=== PATIENT | female | born 1960 | race Caucasian/White ===

== ENCOUNTER 2024-08-30 14:18 | Emergency (ER) | payer OTHER, SELFPAY ==
[2024-08-30 14:21] VITALS: BP 131/55
--- NOTE | 2024-08-30 15:01 | ED.GENMED ---
History of Present Illness
<Abdifatah Velasquez Jr., PA-C - Last Filed: 08/31/24 19:27>
General
Chief Complaint: Abdominal Symptoms
Source: patient
Exam Limitations: none
Time Seen by Provider: 08/30/24 14:36
Nursing documentation reviewed up to this point in time: agreed with
History of Present Illness
History of Present Illness:
The patient is a 64-year-old female presenting with a two-week history of diarrhea. Initially, the diarrhea was watery, and it has since become loose. There is no reported fever, but the patient reports feeling lightheaded. She denies any recent
international travel or obvious exposures. There is no significant change in diet or medications that could account for the symptoms. The patient has no known history of irritable bowel syndrome or gastrointestinal diseases and has not previously
consulted a gastrointestinal specialist. Her last colonoscopy was performed on August 24 of the previous year. The patient has not provided any stool samples or consulted a medical professional regarding this issue until now. There is associated
abdominal pain, which worsens upon palpation.
Past History
<Abdifatah Velasquez Jr., PA-C - Last Filed: 08/31/24 19:27>
Past History
ED Past Medical History: GERD
ED Past Surgical History:
Social History
Tobacco: Non-smoker
Alcohol: Occasional
Personal:
Living: with family
Review of Systems
<Abdifatah Velasquez Jr., PA-C - Last Filed: 08/31/24 19:27>
Review of Systems
Allergies reviewed?: Yes
All Other Systems: ROS reviewed and negative except as documented in HPI and ROS
Phy Exam
<Abdifatah Velasquez Jr., PA-C - Last Filed: 08/31/24 19:27>
Physical Exam
Physical Exam:
GENERAL: Alert , in no apparent distress
EYE: pupils equal and reactive
NECK: Supple, no significant adenopathy.
ENT: o/p clr, mmm.
CARDIAC: Regular rate and rhythm .
LUNGS: Clear breath sounds bilaterally, no acute respiratory distress, no wheezes/rales/rhonchi
ABDOMEN: Tender palpation to the lower abdomen.
NEUROLOGICAL: Alert and oriented, no focal neuro deficits
SKIN: Warm and dry, skin intact.
MUSCULOSKELETAL: No edema, well perfused.
PSYCH: Normal and appropriate interaction.
Course
<Abdifatah Velasquez Jr., CARLOS - Last Filed: 08/31/24 19:27>
Orders/Labs/Results
Orders:
Orders
08/30/24 14:59
CT Abd/Pel (IV only)-DH only Urgent
Comment:
Reason For Exam: abd pain lower
0.9% Sodium Chloride 1000 ml [Nss] 1,000 ml IV BOLUS
Ondansetron Injectable [Zofran] 4 mg IV NOW STA
08/30/24 15:34
Complete Blood Count/With Diff Urgent
Comprehensive Metabolic Panel Urgent
08/30/24 15:48
Urinalysis Reflex To Culture Urgent
Date Specimen was Collected: 08/30/24
Time Specimen was Collected: 15:47
Urine Microscopic Reflex Cult Urgent
Urine Culture Urgent
[place] Source: U
Specimen Description:
Date Specimen was Collected: 08/30/24
Time Specimen was Collected: 15:47
08/30/24 18:28
Loperamide [Imodium] 2 mg PO NOW STA
Abnormal Lab Results
08/30/24 08/30/24
15:34 15:48
WBC 4.5 L 10^3/uL
(4.8-10.8)
RBC 3.92 L 10^6/uL
(4.20-5.40)
Hgb 11.8 L g/dL
(12.0-16.0)
Hct 34.8 L %
(37.0-47.0)
Chloride 113 H mmol/L
(98-107)
Leukocyte Esterase Rfl 1+ A
(Negative)
Urine WBC (Reflex) 11-15 A /HPF
(0-5)
Urine Bacteria (Reflex) Many A
(Negative)
Urine Albumin (Reflex) 2+ A
(Neg - Trace)
08/30/24 15:34
08/30/24 15:34
Vital Signs
Initial and Last Documented VS:
Initial Vital Signs
Temp Pulse Resp BP Pulse Ox
97.6 F 77 15 131/55 98
08/30/24 14:21 08/30/24 14:21 08/30/24 14:21 08/30/24 14:21 08/30/24 14:21
Last Documented Vital Signs
Temp Pulse Resp BP Pulse Ox
97.6 F 77 15 146/70 96
08/30/24 14:21 08/30/24 14:21 08/30/24 14:21 08/30/24 18:00 08/30/24 18:30
<Donna Cheek [employer] - Last Filed: 08/31/24 00:19>
Orders/Labs/Results
Orders:
Orders
08/30/24 14:59
CT Abd/Pel (IV only)-[facility] only Urgent
Comment:
Reason For Exam: abd pain lower
0.9% Sodium Chloride 1000 ml [Nss] 1,000 ml IV BOLUS
Ondansetron Injectable [Zofran] 4 mg IV NOW STA
08/30/24 15:34
Complete Blood Count/With Diff Urgent
Comprehensive Metabolic Panel Urgent
08/30/24 15:48
Urinalysis Reflex To Culture Urgent
Date Specimen was Collected: 08/30/24
Time Specimen was Collected: 15:47
Urine Microscopic Reflex Cult Urgent
Urine Culture Urgent
[place] Source: U
Specimen Description:
Date Specimen was Collected: 08/30/24
Time Specimen was Collected: 15:47
08/30/24 18:28
Loperamide [Imodium] 2 mg PO NOW STA
Abnormal Lab Results
08/30/24 08/30/24
15:34 15:48
WBC 4.5 L 10^3/uL
(4.8-10.8)
RBC 3.92 L 10^6/uL
(4.20-5.40)
Hgb 11.8 L g/dL
(12.0-16.0)
Hct 34.8 L %
(37.0-47.0)
Chloride 113 H mmol/L
(98-107)
Leukocyte Esterase Rfl 1+ A
(Negative)
Urine WBC (Reflex) 11-15 A /HPF
(0-5)
Urine Bacteria (Reflex) Many A
(Negative)
Urine Albumin (Reflex) 2+ A
(Neg - Trace)
08/30/24 15:34
08/30/24 15:34
Vital Signs
Initial and Last Documented VS:
Initial Vital Signs
Temp Pulse Resp BP Pulse Ox
97.6 F 77 15 131/55 98
08/30/24 14:21 08/30/24 14:21 08/30/24 14:21 08/30/24 14:21 08/30/24 14:21
Last Documented Vital Signs
Temp Pulse Resp BP Pulse Ox
97.6 F 77 15 146/70 96
08/30/24 14:21 08/30/24 14:21 08/30/24 14:21 08/30/24 18:00 08/30/24 18:30
<Abdifatah Velasquez Jr. PAThanh - Last Filed: 08/31/24 19:27>
MDM/Problems Addressed
MDM/Problems Addressed:
Plans include obtaining laboratory tests to assess for dehydration and other abnormalities, administering intravenous fluids to address potential dehydration, and providing an antiemetic medication, likely ondansetron, through the IV to help with
symptoms. A stool sample will be collected for further analysis. Considering the abdominal pain, a CT scan may be performed to evaluate for colitis, diverticulitis, or other abdominal pathology.
<Abdifatah Velasquez Jr., PA-C - Last Filed: 08/31/24 19:27>
*Pulse Oximetry
SaO2: 98
Oxygen Mode of Delivery: Room air
<Donna Cheek NP - Last Filed: 08/31/24 00:19>
*Critical Care Note
Total Time (30-74mins, 75-104mins- exclusive of procedures): Not Applicable
<Donna Cheek NP - Last Filed: 08/31/24 00:19>
Update Note
Update Note:
CT report reviewed with patient. No findings to explain her diarrhea. She has had no diarrhea in ED today. mild bldder thickening noted on CT. SHe has no urinary symptoms. UA reviewed, will hold off on antibiotics until C&S resulted. Patient is
agreeable to this. Will discharge home. She will follow upw tih PCP. given instructions on s/s to return to ED and she is agreeable to plan.
ED Attending Note
<Abdifatah Velasquez Jr., PA-C - Last Filed: 08/31/24 19:27>
-
Portions of this chart may have been created with voice recognition software.� Occasional wrong word or��sound alike� substitutions may have occurred due to the inherent limitations of voice recognition software.
Discharge Plan
Departure
Patient Disposition: Home (Routine Discharge)
Date of Disposition: 08/30/24
Time of Disposition: 18:29
Patient with high blood pressure during this ER visit?: No
Condition: Good
Covid-19: Not Applicable
Discharge Problem:
Diarrhea
Instructions: Diarrhea in teens and adults, [place] Diet
Prescriptions:
No Action
escitalopram oxalate [Lexapro] 10 MG tablet
10 mg PO DAILY
esomeprazole magnesium [Nexium] 20 MG capsule,delayed release(DR/EC)
20 mg PO DAILY
penicillin V potassium 500 MG tablet
500 mg PO QID Qty: 40 0RF
hydrocodone-acetaminophen 5 MG/500 MG tablet
1 tab PO .Q4-6HPRN PRN (Reason: PAIN) Qty: 20 0RF
Referrals:
NONE,* [Family Provider, Internal Medicine]
Activity Restrictions/Additional Instructions:
Return to the emergency department immediately for any changes in/worsening of your symptoms.
Interventions
Interventions:
*Risk Screen - Suicide Last Done: 08/30/24 14:21
*General Assessment Last Done: 08/30/24 14:21
*Neglect/Abuse Screening Last Done: 08/30/24 14:21
*ED- Fall Risk Assessment Last Done: 08/30/24 14:52
*ED COVID-19 Vaccine History Last Done: 08/30/24 14:21
*Nursing Disposition Last Done: 08/30/24 19:13
ON-Lanhnx-Gffgavkrmd Assessment Last Done: 08/30/24 14:51
Discharge Date and Time
Discharge Date/Time: 08/30/24 19:14
Print Language: LITHUANIAN
[2024-08-30 15:34] VITALS: BMI 30.8
[2024-08-30] MEDS: ZOFRAN 4 MG IV (15:43)
[2024-08-30] MEDS: NSS 1000 IV (15:43)
[2024-08-30 15:45] VITALS: BP 146/69
[2024-08-30 15:55] LABS: % Basophils 0.9 % (0-2); % Eosinophils 1.8 % (0-6); % Immature Granulocytes 0.2 % (0-0.5); % Neutrophils 54.1 % (42.2-75.2); Absolute Eosinophils 0.1 10^3/uL (0-0.7); Absolute Lymphocytes 1.6 10^3/uL (1.2-3.4); Absolute Monocytes 0.4 10^3/uL (0.1-0.6); Absolute Neutrophils 2.5 10^3/uL (1.4-6.5); Hematocrit 34.8 % (37.0-47.0); Hemoglobin 11.8 g/dL (12.0-16.0); Mean Corp Hgb Conc. 33.9 g/dL (33.0-37.0); Mean Corpuscular Hgb 30.1 pg (27.0-31.0); Mean Corpuscular Volume 88.8 fL (81.0-99.0); Mean Platelet Volume 9.9 fL (7.4-10.4); Nucleated Red Blood Cells % 0 %; Platelet Count 250 10^3/uL (130-400); Red Blood Cell Count 3.92 10^6/uL (4.20-5.40); Red Cell Dist. Width 13.3 % (11.5-14.5); White Blood Cell Count 4.5 10^3/uL (4.8-10.8)
[2024-08-30 15:58] LABS: Urine Albumin 2+ (Neg - Trace); Urine Bilirubin Negative (Negative); Urine Character Slightly Cloudy (Clear); Urine Color Yellow; Urine Glucose Negative (Negative); Urine Ketone Negative (Negative); Urine Leukocyte 1+ (Negative); Urine Nitrite Negative (Negative); Urine Occult Blood Negative (Negative); Urine Urobilinogen 1+ (Neg - 1+)
[2024-08-30 16:00] VITALS: BP 148/72
[2024-08-30 16:10] LABS: ALT (SGPT) 20 U/L (0-35); AST (SGOT) 24 U/L (14-36); Albumin 3.7 g/dl (3.5-5.0); Alkaline Phosphatase 79 U/L (38-126); Blood Urea Nitrogen 15 mg/dl (7-17); Calcium 9.1 mg/dl (8.4-10.2); Carbon Dioxide 26 mmol/L (22-30); Chloride 113 mmol/L (98-107); Estimated Creatinine Clearance 76 ml/min; Glucose 93 mg/dl (70-99); Potassium 4.5 mmol/L (3.5-5.1); Sodium 143 mmol/L (135-145); Total Bilirubin 0.5 mg/dl (0.2-1.3); Total Protein 6.3 g/dl (6.3-8.2); eGFR > 60.00
[2024-08-30 16:11] LABS: Urine Mucus Many
[2024-08-30 16:12] LABS: Urine Bacteria Many (Negative); Urine Calcium Oxalate Crystals Present; Urine Red Blood Cell 0-2 /HPF (0-2)
[2024-08-30 17:00] VITALS: BP 139/55
[2024-08-30 17:56] VITALS: BP 146/70
[2024-08-30 18:00] VITALS: BP 146/70
[2024-08-30] MEDS: IMODIUM 2 MG PO (18:41)
== END 2024-08-30 19:14 | disposition home or self-care (01) ==
LOC: EMR 14:18
PROVIDERS: Physician Assistant; EMERGENCY PHYSICIAN Emergency Medicine
DX: R19.7 Diarrhea, unspecified (principal)
CPT/HCPCS: 99284; 96374; 96361; 74177; 80053; 81003; 81015; 85025; 87086; Q9967